=== PATIENT | male | born 1955 | race Caucasian/White ===

== ENCOUNTER → 2019-04-20 16:12 | Outpatient (CLI) | payer OTHER, SELFPAY ==
--- NOTE | 2019-04-20 16:16 | DI.RAD.S_ITS ---
PROCEDURE: XR LUMBAR SPINE MIN 4V INDICATIONS: Lumbosacral spondylosis with left lower extremity with TECHNIQUE: 5 views of the lumbar spine were acquired. COMPARISON: None. FINDINGS: Bones: 5 nonrib-bearing vertebrae are present. There is normal bony alignment. No vertebral body compression fractures. No suspicious bony lesions. Degenerative disc disease is moderately severe over the middle and lower thirds of the LS spine with facet osteoarthritis becoming progressively more prominent from L2 inferiorly. Soft tissues: Overlying bowel gas pattern is normal. No suspicious soft tissue calcifications. Oblique images: No pars defects. IMPRESSION: The degenerative disc disease and facet osteoarthritis along the lumbosacral spine is moderately severe overall adenosine from L2 inferiorly where progressive greater facet osteoarthritis would predispose to sequentially greater symmetric nerve root impingement. Multilevel radiculopathy likely is present as a result. No significant subluxation or Dictated by: Zander Rosales M.D. on 04/20/2019 at 17:11 Approved by: Zander Rosales M.D. on 04/20/2019 at 17:13
== END ==
PROVIDERS: PCP Internal Medicine; Visit Provider Physical Medicine & Rehabilitation
DX: M47.27 Other spondylosis with radiculopathy, lumbosacral region (principal); M51.37 Other intervertebral disc degeneration, lumbosacral region
CPT/HCPCS: 72110

== ENCOUNTER → 2019-07-31 14:54 | Outpatient (CLI) | payer OTHER, SELFPAY ==
--- NOTE | 2019-07-31 14:56 | DI.MRI.S_ITS ---
PROCEDURE: MR LUMBAR SPINE WO CON INDICATIONS: Lumbosacral spondylosis with left lower extremity with TECHNIQUE: Noncontrast sagittal T1 spin echo and T2 fast echo, sagittal STIR, axial T1 and T2 fast spin echo through the lumbar spine. In cases with scoliosis, additional coronal T2 fast spin echo may be performed. COMPARISON: Located Within [facility], CR, XR LUMBAR SPINE MIN 4V, 04/20/2019, 16:23. FINDINGS: Image quality: Excellent. Alignment and Curvature: There is normal bony alignment. Bone Marrow: Marrow is of normal overall signal. No acute vertebral body compression fractures. Spinal Cord: Conus medullaris terminates at the mid L1 level. Visualized cord demonstrates normal signal and size. Paraspinous Soft Tissues: No paravertebral masses. L1-L2: Mild disc desiccation. Mild diffuse disc bulge. Mild facet and ligament flavum hypertrophy. Mild epidural lipomatosis. Moderate canal stenosis. Mild bilateral foraminal stenosis. L2-L3: Severe disc height loss and desiccation. Moderate diffuse disc bulge. Moderate epidural lipomatosis. Mild facet and ligamentum flavum hypertrophy. Severe canal stenosis. Mild bilateral foraminal stenosis. L3-L4: Severe disc height loss and desiccation. Moderate diffuse disc bulge/osteophyte. Moderate epidural lipomatosis. Mild facet and ligamentum flavum hypertrophy. Severe canal stenosis. Moderate bilateral foraminal stenosis. L4-L5: Severe disc height loss and desiccation. Mild diffuse disc bulge/osteophyte with superimposed right far lateral protrusion. Mild facet and ligamentum flavum hypertrophy. Moderate epidural lipomatosis. Severe canal stenosis. Moderate subarticular right and mild subarticular left foraminal stenosis. L5-S1: Severe disc height loss and desiccation. Mild diffuse disc bulge/osteophyte. Mild facet hypertrophy. Moderate epidural lipomatosis. Severe canal stenosis. Moderate subarticular foraminal stenosis bilaterally. IMPRESSION: 1. Multilevel degenerative disc and facet disease, as well as ligamentum flavum hypertrophy and epidural lipomatosis. 2. Multilevel canal stenoses, worst at L2-L3, L3-L4, L4-L5, and L5-S1, where there is severe canal stenosis. 3. Multilevel foraminal stenoses, worst at L3-L4 bilaterally, at L4-L5 on the right, and L5-S1 bilaterally where there are moderate foraminal stenoses present. Dictated by: Osvaldo Belcher M.D. on 08/01/2019 at 13:28 Approved by: Osvaldo Belcher M.D. on 08/01/2019 at 13:33
== END ==
PROVIDERS: Family Provider Internal Medicine; PCP Internal Medicine; Visit Provider Physical Medicine & Rehabilitation
DX: M47.27 Other spondylosis with radiculopathy, lumbosacral region (principal); M51.16 Intervertebral disc disorders with radiculopathy, lumbar region; M51.17 Intervertebral disc disorders with radiculopathy, lumbosacral region; M48.061 Spinal stenosis, lumbar region without neurogenic claudication; M48.07 Spinal stenosis, lumbosacral region; E88.2 Lipomatosis, not elsewhere classified
CPT/HCPCS: 72148